=== PATIENT | female | born 1965 | race Two or more races ===

== ENCOUNTER 2025-04-18 09:15 | Day surgery (SDC) | payer MEDICAID, SELFPAY ==
[2025-04-17 10:03] VITALS: BMI 44.1
[2025-04-17 10:38] LABS: Basophils # (Auto) 0.0 Thou/mm3 (0.0-0.2); Basophils % (Auto) 0 % (0-2.5); Eosinophils # (Auto) 0.1 Thou/mm3 (0.0-0.5); Eosinophils % (Auto) 2 % (0-10); Hematocrit 39.1 % (36.0-46.0); Hemoglobin 12.9 g/dL (12.0-16.0); Immature Granulocytes Auto 0.02 Thou/mm3 (0.00-0.00); Lymphocytes # (Auto) 1.8 Thou/mm3 (1.0-4.8); Lymphocytes % (Auto) 34 % (10-50); Mean Corpuscular HGB Conc 33.0 g/dl (31.0-37.0); Mean Corpuscular Hemoglobin 29.5 pg (25.0-35.0); Mean Corpuscular Volume 89 fL (80-100); Monocytes # (Auto) 0.4 Thou/mm3 (0.0-0.8); Monocytes % (Auto) 8 % (0-12); Neutrophils # (Auto) 2.9 Thou/mm3 (1.8-7.7); Neutrophils % (Auto) 56 % (37-80); Nucleated Red Blood Cell # 0.00 Thou/mm3 (0.00-0.00); Nucleated Red Blood Cell % 0 /100 WBC (0); Platelet Count 207 Thou/mm3 (140-440); RDW Standard Deviation 42.1 fL (36.4-46.3); Red Blood Count 4.38 Miln/mm3 (4.00-5.20); White Blood Count 5.3 Thou/mm3 (3.6-11.0)
[2025-04-17 10:46] LABS: INR 1.0 (0.9-1.3); Partial Thromboplastin Time 25.9 Seconds (22.0-36.0); Prothrombin Time 10.3 Seconds (9.0-12.2)
[2025-04-17 10:55] LABS: Alanine Aminotransferase 65 U/L (10-49); Albumin, Serum 4.7 gm/dL (3.4-4.8); Albumin/Globulin Ratio 1.7 (1.2-2.2); Alkaline Phosphatase 104 U/L (46-116); Anion Gap 8 (7-16); Aspartate Amino Transferase 53 U/L (0-34); BUN/Creatinine Ratio 18 Ratio (12-20); Bilirubin,Total 0.6 mg/dL (0.3-1.2); Blood Urea Nitrogen 14 mg/dL (9-23); Calcium 9.9 mg/dL (8.3-10.6); Calcium (Corrected) 9.9 mg/dL (8.5-10.1); Carbon Dioxide 29.5 mMol/L (20.0-31.0); Chloride 104 mMol/L (98-107); Creatinine (Component) 0.8 mg/dL (0.6-1.3); Estimated Creatinine Clearance 84.0 mL/min (>60); Globulin 2.7 gm/dL (2.3-3.5); Glucose 115 mg/dL (74-106); Osmolality,Calculated 282 (275-295); Potassium 3.1 mMol/L (3.4-5.1); Sodium 141 mMol/L (136-145); Total Protein 7.4 gm/dL (5.7-8.2); eGFR > 60 See Note
--- NOTE | 2025-04-17 15:16 | SUR.PREOP ---
Pt notified to come in at 0930 tomorrow for surgery.
[2025-04-18] VITALS (8 sets, daily range): BP systolic 133–176; BP diastolic 57–106; PULSE 58–85; RESP 13–20; TEMP 36.8–37.1; O2SAT 95–99; BMI 45.8
--- NOTE | 2025-04-18 08:50 | ESHP_ITS ---
RE: ORACIO LAW : 1965 DATE OF ADMISSION: 04/17/2025 HISTORY OF PRESENT ILLNESS: This patient was seen in the [facility] in January for right breast biopsy, which showed invasive lobular carcinoma. The patient did not feel any lump, but this lesion was found to be on the right side by mammogram and ultrasound. Biopsy of this lesion from the right breast 12 o'clock position showed that she had 2 foci of cancer, one was at 12 o'clock position, the other one retroareolar position. The patient underwent guidewire localization and excision of this lesion on 02/28/2025, but at the present time, showed some tumor cells at the site of excision on the right breast and therefore, she was scheduled for wide excision of the partial mastectomy site. PAST MEDICAL HISTORY: Revealed that she had a history of hypertension, hyperlipidemia, and prediabetes. PHYSICAL EXAMINATION: GENERAL: Revealed a slightly obese female, who is 5 feet 2 inches, weighing 236 pounds with BMI of 43.2. VITAL SIGNS: Revealed temperature of 97.9, pulse 75, and BP 150/79. General appearance was normal. HEENT: Head normal. Eyes, ears, nose and throat were normal. LUNGS: Normal. HEART: Sinus with no murmurs. BREASTS: Revealed that she had bilaterally large breasts on the right. There was a palpable lump at 12 o'clock position just before surgery in the previous, but at the present time, there is only scar tissue with slight dimpling. This lump was felt before the surgery at 12 o'clock position. COURSE OF ACTION: Because of the incomplete margin, patient will undergo wide excision of the lesion under general anesthesia. I told the patient that she will have deformity of the right breast because of loss of volume. She already has slight dimpling and it will get worse. Other problem consists of infection and hematoma. The patient is agreeable. DT: 14:17:54 TT: 16:57:00 Ref: [id number] - TID: [id number]
--- NOTE | 2025-04-18 13:43 | ESOP_ITS ---
Date of Procedure 04/18/25 Pre Op Diagnosis Residual infiltrating lobular carcinoma right breast Post Op Diagnosis Same Procedure Wide excision9(partial mastectomy) right breast Findings Patient was found to have some hot tissues over the medial aspect which was removed. Anterior tumor bed was removed and marked for analysis by the pathologist Procedure Description This patient required wide excision and revision partial mastectomy because of the residual cancer that was seen on the previous surgery done on 02/28/2025. Therefore wide excision of the tumor bed namely a another partial mastectomy was planned. Out the patient was brought to the operating room and LMA anesthesia was given. Then her right breast was washed with ChloraPrep solution and draped in a sterile manner. Timeout was performed. Then I made the incision over the previous circumareolar scar and dissected the subcutaneous tissue and opened the the previous biopsy site. Using Leticia retractors as well as [place] the cavity was easily reached and I took a large margin of the entire tumor bed. On the medial side patient was having some hardened tissue suggesting may be residual tumor. I marked it with 3-0 nylon. I also marked the lateral margin with a 3-0 nylon long suture. Then the superior and inferior margins were marked with blue sutures of Prolene. Then the tumor bed was extensively irrigated and bleeding points were controlled with cautery. I left a #10 Jose-Parsons and brought out through the right side of the breast. There was a large empty space that could not be approximated. The drain was left in the plane and the posterior margin was all the way down to the pectoral muscles and fascia. Then after checking for the bleeding (using hot packs the subcutaneous tissue was closed with 3-0 chromic and the skin by 4-0 Monocryl subcuticular stitch. Dressing was applied with Adaptic and fluff and compression with extra-large breast binder. Patient tolerated procedure Pathology / specimen Other (The residual cancer marked on each side.) IVF Infused 50 Estimated Blood Loss 50 Surgeon Lindsay Valdez MD Surgical Staff Operation Date: 04/18/25 11:45 Case Staff HOTEL GENERAL MANAGER: Jhony Dyer RN First Assistant: Loreto Escobar
--- NOTE | 2025-04-18 13:46 | SUR.PHASEI ---
1342 patient arrived to recovery resting comfortably in [facility], on oxygen 8L via oxy mask, sleeping and able to arouse with verbal promptly then drifts back to sleep, breathing unlabored, dressing intact to chest; sutures, NIKITA 10F round drain with serosanguineous fluid in collection reservoir, with drain sponge, adaptic, fluffs, breast binder, no bleeding noted, report received from Alyx LIVE and Jhony PIERRE
--- NOTE | 2025-04-18 15:08 | SUR.PHASEII ---
1508 Patient meets discharge criteria from recovery, awake and alert, breathing unlabored, vital signs stable, denies pain, dressing intact; no bleeding noted, NIKITA drain in place-secure with a safety pin, patient and her son educated on NIKITA home care and when to contact MD regarding the amount of drainage, both were receptive, denies nausea, drinking fluids; tolerating well, assisted with dressing into her clothing by this copywriter, discharge instructions given to patient and patients son; son signed discharge instructions. Patient given all her belongings prior to discharge, transported with wheelchair and left in a private vehicle.
== END 2025-04-18 15:08 | disposition home or self-care (01) ==
PROVIDERS: PCP Family Medicine; Referring Provider Surgery; Visit Provider Surgery
PROC: (CPT 19301; principal; 2025-04-18 11:45)
DX: C50.911 Malignant neoplasm of unspecified site of right female breast (principal)
CPT/HCPCS: 19301; 36415; 80053; 85025; 85610; 85730; A4649; J0131; J1100; J1171; J2405; J2704; J3010; J3490